=== PATIENT | female | born 1970 | race American Indian/Alaskan Native ===

== ENCOUNTER 2021-07-15 12:36 | Emergency (ER) | payer MEDICAID ==
[2021-07-15 12:50] VITALS: BP 115/78
[2021-07-15] MEDS ORDERED: BUTALB/ACETAMINOPHEN/CAFFEINE TAB PO ONE (13:57)
[2021-07-15] MEDS ORDERED: TETRACAINE 0.5% OPHTH SOLN 4ML OD ONE (14:00)
--- NOTE | 2021-07-15 14:02 | Emergency Department Report ---
HPI - General Chief Complaint: Headache Time Seen by Provider: 07/15/21 13:14 - HPI HPI: MSE 5 The patient is a 51-year-old female present with a chief complaint of right retro-orbital pain. The patient states this morning at 09: 3 zero he developed a right-sided headache, right retro-orbital pain multiple colored spots. The patient states the spots will last for 10 minutes but resolves when she lays down and rests. Patient currently gives her headache a score 7/10 ED Past Medical Hx - Past Medical History Hx HIV: Yes (Viral load undetectable) Additional medical history: Hepatitis C-cured - Surgical History Past Surgical History?: No - Family History Family history: no significant - Social History Smoking Status: Current Every Day Smoker (1/7 pack/day) Substance Use Type: None (Denies illicit drug use) - Medications Home Medications: Home Medications Medication Instructions Recorded Confirmed Last Taken Type Butalb/Acetamin/Caff 50-325-40 2 tab PO Q8HR PRN #20 tablet 07/15/21 Unknown Rx [Fioricet 50-325-40] ED Review of Systems ROS: Stated complaint: HEAD PAIN Other details as noted in HPI Constitutional: no symptoms reported Eyes: vision change ENT: denies: throat pain Respiratory: no symptoms reported Cardiovascular: denies: chest pain Endocrine: no symptoms reported Gastrointestinal: denies: abdominal pain Genitourinary: denies: dysuria Musculoskeletal: denies: back pain Neurological: headache Physical Exam - Physical Exam Vital Signs: Vital Signs 07/15/21 12:49 Temperature 99.1 F Pulse Rate 91 H Respiratory 16 Rate Blood Pressure 115/78 [Right] O2 Sat by Pulse 97 Oximetry Physical Exam: GENERAL: The patient is well-developed well-nourished female sitting in chair not appearing to be in acute distress. [] HEENT: Normocephalic. Atraumatic. Extraocular motions are intact. Patient has moist mucous membranes. Fundus sharp OD, visual acuity noted (see nursing notes) NECK: Supple. Trachea midline CHEST/LUNGS: Clear to auscultation. There is no respiratory distress noted. HEART/CARDIOVASCULAR: Regular. There is no tachycardia. There is no gallop rub or murmur. ABDOMEN: Abdomen is soft, nontender. Patient has normal bowel sounds. There is no abdominal distention. SKIN: There is no rash. There is no edema. There is no diaphoresis. NEURO: The patient is awake, alert, and oriented. The patient is cooperative. The patient has left hemiparesis from previous CVA. The patient has normal speech MUSCULOSKELETAL:There is no evidence of acute injury. ED Course Vital Signs 07/15/21 12:49 Temperature 99.1 F Pulse Rate 91 H Respiratory 16 Rate Blood Pressure 115/78 [Right] O2 Sat by Pulse 97 Oximetry ED Medical Decision Making - Lab Data Result diagrams: 07/15/21 14:00 07/15/21 14:00 Laboratory Tests 07/15/21 07/15/21 07/15/21 14:00 14:00 14:00 WBC 6.3 RBC 5.21 H Hgb 15.3 H Hct 45.5 H MCV 87 MCH 29 MCHC 34 RDW 13.9 Plt Count 427 Lymph % (Auto) 28.6 [place] % (Auto) 7.2 Eos % (Auto) 0.4 Baso % (Auto) 0.6 Lymph # (Auto) 1.8 [place] # (Auto) 0.5 Eos # (Auto) 0.0 Baso # (Auto) 0.0 Seg Neutrophils % 63.2 Seg Neutrophils # 4.0 PT 13.3 INR 0.96 APTT 33.1 Sodium 134 L Potassium 4.7 Chloride 100.2 Carbon Dioxide 20 L Anion Gap 19 BUN 11 Creatinine 0.5 L Estimated GFR > 60 BUN/Creatinine Ratio 22 Glucose 97 Calcium 9.7 - EKG Data -: EKG Interpreted by Nh EKG shows normal: sinus rhythm Rate: normal - EKG Data When compared to previous EKG there are: previous EKG unavailable Interpretation: other (No ischemic changes seen) - Radiology Data Radiology results: report reviewed (CT head), image reviewed (CT head) [facility] [address] [place] [address] Cat Scan Report Signed Patient: BLACK LEE MR#: [id number] 0 : 1970 Acct:[id number] Age/Sex: 51 / F ADM Date: 07/15/21 Loc: ED Attending Dr: Ordering Physician: ARLENE CAMARGO MD Date of Service: 07/15/21 Procedure(s): CT head/brain wo con Accession Number(s): [id number] cc: ARLENE CAMARGO MD . CT head/brain wo con INDICATION: Right retro-orbital pain. TECHNIQUE: All CT scans at this location are performed using CT dose reduction for ALARA by means of a utomated exposure control. COMPARISON: None available. FINDINGS: There is no evidence of hemorrhage, hydrocephalus, brain edema, or mass effect/mass lesion. There is chronic encephalomalacia throughout the right GORDON and MCA territories from previous infarct. The included paranasal sinuses and mastoid air cells are clear. The orbits appear unremarkable. IMPRESSION: 1. No acute intracranial abnormality. Signer Name: Marques Bolton MD Signed: 07/15/2021 2:13 PM Workstation Name: [id number] Transcribed By: MILENA Dictated By: Marques Bolton MD Electronically Authenticated By: Marques Bolton MD Signed Date/Time: 07/15/211412 DD/ 12 TD/TT: Print Cancel - Medical Decision Making Status post Fioricet the patient states her headache has resolved and she is feeling normal. Funduscopic exam within normal limits sharp landmarks and patient is now asymptomatic. Strong warnings given - Differential Diagnosis Migraines, retinal detachment, glaucoma, retro-orbital hematoma Critical care attestation.: If time is entered above; I have spent that time in minutes in the direct care of this critically ill patient, excluding procedure time. ED Disposition Clinical Impression: Migraine headache Disposition: 01 HOME / SELF CARE / HOMELESS Is pt being admited?: No Does the pt Need Aspirin: No Condition: Stable Instructions: Migraine Headache Additional Instructions: Return to the emergency department should you develop worsening symptoms, inability to tolerate food or liquids, high fever or any other concerns Prescriptions: Butalb/Acetamin/Caff 50-325-40 [Fioricet 50-325-40] 2 tab PO Q8HR PRN #20 tablet PRN Reason: Headache Referrals: NAVJOT GARDNER MD [Staff Physician] - 3-5 Days (Dr. Gardner is a neurologist. Please follow-up with him for further evaluation) IKE SHOOK MD [Staff Physician] - 3-5 Days (Dr. Shook is an ophthalmolog ist. Please follow-up with him for further evaluation) Time of Disposition: 16:05
--- NOTE | 2021-07-15 14:18 | Cat Scan Report ---
. CT head/brain wo con INDICATION: Right retro-orbital pain. TECHNIQUE: All CT scans at this location are performed using CT dose reduction for ALARA by means of automated e xposure control. COMPARISON: None available. FINDINGS: There is no evidence of hemorrhage, hydrocephalus, brain edema, or mass effect/mass lesion. There is chronic encephalomalacia throughout the right GORDON and MCA territories from previous infarct. The incl uded paranasal sinuses and mastoid air cells are clear. The orbits appear unremarkable. IMPRESSION: 1. No acute intracranial abnormality. Signer Name: Marques Bolton MD Signed: 07/15/2021 2:13 PM Workstation Name: [id number]
[2021-07-15 14:41] LABS: Basophils % (Auto) 0.6 % (0.0-1.8); Eosinophils % (Auto) 0.4 % (0.0-4.3); Hematocrit 45.5 % (30.3-42.9); Hemoglobin 15.3 gm/dl (10.1-14.3); Lymphocytes # (Auto) 1.8 K/mm3 (1.2-5.4); Lymphocytes % (Auto) 28.6 % (13.4-35.0); Mean Corpuscular HGB Conc 34 % (30-34); Mean Corpuscular Volume 87 fl (79-97); Monocytes # (Auto) 0.5 K/mm3 (0.0-0.8); Monocytes % (Auto) 7.2 % (0.0-7.3); Platelet Count 427 K/mm3 (140-440); Red Blood Count 5.21 M/mm3 (3.65-5.03); Red Cell Distribution Width 13.9 % (13.2-15.2)
[2021-07-15 14:48] LABS: Blood Urea Nitrogen 11 mg/dL (7-17); Calcium 9.7 mg/dL (8.4-10.2); Hemolysis Index 95
[2021-07-15 14:51] LABS: INR 0.96 (0.87-1.13)
[2021-07-15 14:52] LABS: BUN/Creatinine Ratio 22; Partial Thromboplastin Time 33.1 Sec. (24.2-36.6)
== END 2021-07-15 16:29 | disposition home or self-care (01) ==
LOC: ED 12:36
DX: G43.909 Migraine, unspecified, not intractable, without status migrainosus (principal); F17.200 Nicotine dependence, unspecified, uncomplicated
CPT/HCPCS: 36415; 70450; 80048; 85025; 85610; 85730; 99284

== ENCOUNTER 2022-06-09 21:20 | Emergency (ER) | payer MEDICAID ==
--- NOTE | 2022-06-09 22:59 | XRay Report ---
LEFT HAND 3 VIEWS INDICATION / CLINICAL INFORMATION: LT HAND INJURY/FALL COMPARISON: None available. FINDINGS: This study is limited by contraction of the hand. BONES and JOINT(S): No acute fracture or subluxation. No significant arthritis. SOFT TISSUES: There is mild generalized edema without other significant abnormalities. ADDITIONAL FINDINGS: None. IMPRESSION: 1. Limited exam demonstrating mild generalized left hand edema without other acute findings. Signer Name: Mark Sanderson MD Signed: 06/09/2022 10:54 PM Workstation Name: [id number]
[2022-06-10] MEDS ORDERED: ACETAMINOPHEN 500 MG TAB PO ONE (02:02)
[2022-06-10 03:27] VITALS: BP 149/86
--- NOTE | 2022-06-10 06:01 | Emergency Department Report ---
ED Upper Extremity Inj HPI - General Chief Complaint: Extremity Injury, Upper Stated Complaint: LT WRIST PAIN Time Seen by Provider: 06/10/22 05:15 Source: patient, EMS Mode of arrival: Wheelchair Limitations: No Limitations - History of Present Illness Initial Comments: Patient is a 51-year-old female with a history of left hemiparesis after 2 strokes who presents stating that she fell yesterday getting caught up in her left foot. She landed on her left hand and complains of pain in the proximal hand. No prior injuries to that hand she is right-hand dominant. She denies any other injuries head injury or neck pain. Complaint: Injury to:: left, hand Other Injuries: none Handedness: right Place: home Severity scale (0 -10): 4 Improves With: none Worsens With: movement of extremity Context: fall Associated Symptoms: denies other symptoms Treatments Prior to Arrival: other (None) - Related Data Previous Rx's Medication Instructions Recorded Last Taken Type Butalb/Acetamin/Caff 50-325-40 2 tab PO Q8HR PRN #20 tablet 07/15/21 Unknown Rx [Fioricet 50-325-40] Allergies Allergy/AdvReac Type Severity Reaction Status Date / Time No Known Allergies Allergy Unverified 07/15/21 12:50 ED Review of Systems ROS: Stated complaint: LT WRIST PAIN Other details as noted in HPI Comment: All other systems reviewed and negative Constitutional: denies: chills, fever Eyes: denies: vision change ENT: denies: epistaxis Respiratory: denies: cough, shortness of breath Cardiovascular: denies: chest pain, palpitations, edema Gastrointestinal: denies: nausea, vomiting, diarrhea Genitourinary: denies: dysuria, hematuria Musculoskeletal: as per HPI. denies: back pain Skin: other (No open wounds). denies: rash Neurological: other (No change in her usual hemiparesis). denies: headache Psychiatric: denies: anxiety, depression Hematological/Lymphatic: denies: easy bleeding, easy bruising ED Past Medical Hx - Past Medical History Previous Medical History?: Yes Hx CVA: Yes (LT SIDE DEFICITS) Hx HIV: Yes (Viral load undetectable) Additional medical history: Hepatitis C-cured - Surgical History Past Surgical History?: No - Social History Smoking Status: Never Smoker Substance Use Type: None - Medications Home Medications: Home Medications Medication Instructions Recorded Confirmed Last Taken Type Butalb/Acetamin/Caff 50-325-40 2 tab PO Q8HR PRN #20 tablet 07/15/21 Unknown Rx [Fioricet 50-325-40] ED Physical Exam - General Limitations: No Limitations General appearance: alert, in no apparent distress - Head Head exam: Present: atraumatic, normocephalic - Eye Eye exam: Present: PERRL, EOMI, scleral icterus. Absent: nystagmus - ENT ENT exam: Present: mucous membranes moist - Neck Neck exam: Present: normal inspection, full ROM. Absent: tenderness - Respiratory Respiratory exam: Present: normal lung sounds bilaterally. Absent: respiratory distress, chest wall tenderness - Cardiovascular Cardiovascular Exam: Present: regular rate, normal rhythm, normal heart sounds - GI/Abdominal GI/Abdominal exam: Present: soft. Absent: distended, tenderness - Expanded Upper Extremity Exam Left General: Absent: laceration, abrasion Forearm Wrist exam: Present: other (Left hemiparesis which is not new. No crepitus or deformities other than contraction). Absent: normal inspection, tenderness, deformity, crepidus, dislocation Hand Wrist exam: Present: tenderness (Proximal third metacarpal), swelling (Proximal metacarpal areas), other (Left-sided hemiparesis). Absent: abrasion, laceration, ecchymosis Neuro motor exam: Present: other (Left hemiparesis as above) Neurosensory exam: Present: other ( left hemiparesis as above) Vascular: Present: normal capillary refill, radial pulse. Absent: vascular compromise - Back Exam Back exam: Present: normal inspection, full ROM - Neurological Exam Neurological exam: Present: alert, oriented X3, other (Left hemiparesis) - Psychiatric Psychiatric exam: Present: normal affect, normal mood - Skin Skin exam: Present: warm, dry, intact. Absent: rash ED Course Vital Signs 06/09/22 06/10/22 21:20 03:26 Temperature 97.9 F Pulse Rate 102 H 96 H Respiratory 16 12 Rate Blood Pressure 141/85 149/86 [Left] O2 Sat by Pulse 99 97 Oximetry - Reevaluation(s) Reevaluation #1: 06/10/22 06:13 Improvement of pain with Tylenol and ice pack. ED Medical Decision Making - Radiology Data Radiology results: report reviewed [facility] [address] [place] [address] XRay Report Signed Patient: BLACK LEE MR#: [id number] 0 : 1970 Acct:[id number] Age/Sex: 51 / F ADM Date: 06/09/22 Loc: ED Attending Dr: Ordering Physician: JE MARTINEZ MD Date of Service: 06/09/22 Procedure(s): XR hand 3+V LT Accession Number(s): [id number] cc: ED MD JUAN Fluoro Time In Minutes: LEFT HAND 3 VIEWS INDICATION / CLINICAL INFORMATION: LT HAND INJURY/FALL COMPARISON: None available. FINDINGS: This study is limited by contraction of the hand. BONES and JOINT(S): No acute fracture or subluxation. No significant arthritis. SOFT TISSUES: There is mild generalized edema without other significant abnormalities. ADDITIONAL FINDINGS: None. IMPRESSION: 1. Limited exam demonstrating mild generalized left hand edema without other acute findings. Signer Name: Mark Sanderson MD Signed: 06/09/2022 10:54 PM Workstation Name: [id number] Transcribed By: MN Dictated By: Mark Sanderson MD Electronically Authenticated By: Mark Sanderson MD Signed Date/Time: 06/09/222253 DD/ 52 - Medical Decision Making Hand contusion. No fracture identified. Will treat with Tylenol and ice as well as a padded Jayjay. - Differential Diagnosis Hand contusion. Fracture. Critical care attestation.: If time is entered above; I have spent that time in minutes in the direct care of this critically ill patient, excluding procedure time. ED Disposition Clinical Impression: Hand contusion, Fall from ground level Disposition: 01 HOME / SELF CARE / HOMELESS Is pt being admited?: No Condition: Stable Instructions: Fall Prevention in the Home, Adult, [id number], Hand Contusion, [id number] Additional Instructions: Ice to area 15 minutes out of the hour. Padded Jayjay wrap. Elevate. Rest. Follow-up with primary care doctor this week. Tylenol as needed for pain Referrals: [facility] DIVYA [Primary Care Provider] - 3-5 Days Time of Disposition: 06:17
== END 2022-06-10 07:07 | disposition home or self-care (01) ==
LOC: ED 21:20
DX: S60.222A Contusion of left hand, initial encounter (principal); Z79.899 Other long term (current) drug therapy; W18.39XA Other fall on same level, initial encounter; Y93.89 Activity, other specified; Y92.89 Other specified places as the place of occurrence of the external cause; Y99.8 Other external cause status
CPT/HCPCS: 99283